=== PATIENT | male | born 1945 | race African-American/Black ===

== ENCOUNTER 2016-08-09 13:13 | Emergency (ER) | payer MEDICARE, MEDICAID ==
[~2016-08-09] VITALS: Ht 182.9 cm; Wt 75.0 kg
[~2016-08-09 13:13] MED LIST: AMLO5TAB4 PO; APIX2.5T PO; ASPI-1035 PO; CLON0.2T PO; DOCU-150 PO; FAMO20TA8 PO; INSLAN SQ; LOSA25TA12 PO; SIMV20TA6 PO; TRAM50TA3 PO
[2016-08-09] MEDS ORDERED: SODIUM CHLORIDE 0.9% 1,000 ML IV ONE (14:45)
[2016-08-09 15:21] LABS: BASOPHILS % 0.7 % (0.0-2.0); HEMATOCRIT. 29.1 % (42.0-52.0); HEMOGLOBIN. 9.4 g/dL (14.0-18.0); LYMPHOCYTES % 8.5 % (20.0-50.0); MEAN CORPUSCULAR HEMOGLOBIN 30.3 pg (28.0-32.0); MEAN CORPUSCULAR HGB CONC 32.2 g/dL (31.0-37.0); MEAN CORPUSCULAR VOLUME 94.3 fL (80.0-94.0); MEAN PLATELET VOLUME 8.2 fl (7.4-10.4); MONOCYTES % 10.6 % (2.0-8.0); NEUTROPHILS % 75.2 % (40.0-76.0); PLATELET 271 x1000/uL (130-400); RED BLOOD CELL COUNT 3.08 mill/uL (4.7-6.1); RED CELL DISTRIBUTION WIDTH 16.5 % (11.6-14.6); WHITE BLOOD COUNT 10.6 x1000/uL (4.5-11.0)
[2016-08-09 15:24] LABS: CHLORIDE 100 mEq/L (98-107); INDEX HEMOLYSI 1 (1-3); INDEX ICTERIC 1 (1-4); INDEX LIPEMIC 1 (1-3)
[2016-08-09 15:26] LABS: ALBUMIN 3.7 g/dL (3.4-5.0); CALCIUM 9.6 mg/dL (8.5-10.1)
[2016-08-09 15:28] LABS: ANION GAP 18; CARBON DIOXIDE 28 mEq/L (21-32); UREA NITROGEN BLOOD 51 mg/dL (7-21)
[2016-08-09 15:33] LABS: ALANINE AMINOTRANSFERASE 13 IU/L (13-61); eGFR 7 mL/min (>60)
[2016-08-09 17:31] VITALS: BP 144/58
== END 2016-08-09 20:28 | disposition home or self-care (01) ==
LOC: ER 13:49
DX: R19.7 Diarrhea, unspecified (principal); Z79.4 Long term (current) use of insulin; Z79.82 Long term (current) use of aspirin; Z79.899 Other long term (current) drug therapy; R10.9 Unspecified abdominal pain; E11.22 Type 2 diabetes mellitus with diabetic chronic kidney disease; N18.9 Chronic kidney disease, unspecified; D64.9 Anemia, unspecified; D72.810 Lymphocytopenia; E86.0 Dehydration; Z99.2 Dependence on renal dialysis; D72.821 Monocytosis (symptomatic); E11.65 Type 2 diabetes mellitus with hyperglycemia
CPT/HCPCS: 36415; 80053; 85025; 96360; 96361; 99285; J7030

== ENCOUNTER 2016-10-08 08:44 | Emergency (ER) | payer MEDICARE, MEDICAID ==
[~2016-10-08] VITALS: Ht 193 cm; Wt 109.0 kg
[2016-10-08] MEDS ORDERED: ASPIRIN 81MG TABLET PO ONE (10:15)
[2016-10-08] MEDS ORDERED: FUROSEMIDE 40MG/4ML VIAL IVP ONE (10:15)
[2016-10-08 10:35] LABS: EOSINOPHILS % 7.7 % (0.0-5.0); HEMATOCRIT. 24.4 % (42.0-52.0); HEMOGLOBIN. 7.9 g/dL (14.0-18.0); LYMPHOCYTES % 10.9 % (20.0-50.0); MEAN CORPUSCULAR HEMOGLOBIN 29.9 pg (28.0-32.0); MEAN CORPUSCULAR VOLUME 91.9 fL (80.0-94.0); MEAN PLATELET VOLUME 9.3 fl (7.4-10.4); MONOCYTES % 10.4 % (2.0-8.0); PLATELET 150 x1000/uL (130-400); RED BLOOD CELL COUNT 2.66 mill/uL (4.7-6.1); RED CELL DISTRIBUTION WIDTH 18.5 % (11.6-14.6)
[2016-10-08 10:47] LABS: CHLORIDE 106 mEq/L (98-107)
[2016-10-08 10:54] LABS: CARBON DIOXIDE 14 mEq/L (21-32)
[2016-10-08 10:56] LABS: TROPONIN I 0.09 ng/mL (0.00-0.04)
[2016-10-08 11:11] LABS: INR 1.1; PROTHROMBIN TIME 11.3 sec
[2016-10-08] MEDS ORDERED: FUROSEMIDE 100MG/10ML VIAL IV STA (11:26)
[2016-10-08] MEDS ORDERED: DEXTROSE 50% WATER 50ML SYRINGE IV ONE (11:30)
[2016-10-08] MEDS ORDERED: INSULIN REGULAR (HUMULIN R) 300UNITS/3ML IV ONE (11:30)
[2016-10-08] MEDS ORDERED: SODIUM BICARBONATE 8.4% 1 MEQ/ML 50ML SYR IV ONE (11:30)
[2016-10-08] MEDS ORDERED: SODIUM POLYSTYRENE SULFONATE 15 G/60 ML BOT PO ONE (11:30)
[2016-10-08] MEDS ORDERED: ALBUTEROL (0.083%) 2.5MG/3ML NEB HHN ONE (11:30)
[2016-10-08] MEDS ORDERED: CALCIUM CHLORIDE 1GM/10ML SYR IV ONE (11:30)
[2016-10-08 13:51] VITALS: BP 117/47
== END 2016-10-08 13:53 | disposition left against medical advice (07) ==
LOC: ER 09:00 → EDBEDREQ 11:32 → ER 13:53 → CANBEDREQ 16:25
DX: R06.00 Dyspnea, unspecified (principal); E87.70 Fluid overload, unspecified; Z79.899 Other long term (current) drug therapy; I12.9 Hypertensive chronic kidney disease with stage 1 through stage 4 chronic kidney disease, or unspecified chronic kidney disease; E11.22 Type 2 diabetes mellitus with diabetic chronic kidney disease; N18.9 Chronic kidney disease, unspecified; E87.5 Hyperkalemia
CPT/HCPCS: 36415; 71010; 80053; 82962; 83880; 84484; 85025; 85610; 93005; 96374; 96375; 96376; 99285; J1815; J1940; J3490

== ENCOUNTER 2016-10-12 00:58 | Inpatient (IN) | payer MEDICARE, MEDICAID ==
[~2016-10-12] VITALS: Ht 200.7 cm; Wt 104.3 kg
[~2016-10-12 00:58] MED LIST changes: -ASPI-1035 PO; +ASPI-1159 PO
[2016-10-12 02:19] LABS: BASOPHILS % 0.8 % (0.0-2.0); EOSINOPHILS % 2.5 % (0.0-5.0); HEMATOCRIT. 23.6 % (42.0-52.0); HEMOGLOBIN. 7.5 g/dL (14.0-18.0); LYMPHOCYTES % 9.9 % (20.0-50.0); MEAN CORPUSCULAR VOLUME 91.2 fL (80.0-94.0); MEAN PLATELET VOLUME 7.4 fl (7.4-10.4); MONOCYTES % 7.8 % (2.0-8.0); PLATELET 174 x1000/uL (130-400); RED BLOOD CELL COUNT 2.59 mill/uL (4.7-6.1); RED CELL DISTRIBUTION WIDTH 18.9 % (11.6-14.6)
[2016-10-12 02:35] LABS: CARBON DIOXIDE 13 mEq/L (21-32); CHLORIDE 101 mEq/L (98-107)
[2016-10-12] MEDS ORDERED: SODIUM POLYSTYRENE SULFONATE 15 G/60 ML BOT PO NR (04:15)
[2016-10-12] MEDS ORDERED: INSULIN REGULAR (HUMULIN R) 300UNITS/3ML IV NR (04:15)
[2016-10-12] MEDS ORDERED: DEXTROSE 50% WATER 50ML SYRINGE IV NR (04:15)
[2016-10-12] MEDS ORDERED: SODIUM BICARBONATE 8.4% 1 MEQ/ML 50ML SYR IV NR (04:15)
[2016-10-12 09:45] VITALS: BP 130/49
[2016-10-12 10:31] VITALS: BP 130/49
[2016-10-12 12:00] VITALS: BP 136/55
[2016-10-12] MEDS ORDERED: ONDANSETRON HCL 4MG/2ML VIAL IV PRN (13:15)
[2016-10-12] MEDS ORDERED: TRAMADOL 50MG TABLET PO PRN (13:15)
[2016-10-12] MEDS ORDERED: ACETAMINOPHEN 325MG TABLET PO PRN (13:15)
[2016-10-12] MEDS ORDERED: IPRATROPIUM/ALBUTEROL 0.5-3(2.5)MG/3ML NEB INH PRN (13:15)
[2016-10-12] MEDS: CLONIDINE 0.2MG TABLET PO SCH ×2 (13:30→21:40)
[2016-10-12] MEDS ORDERED: AMLODIPINE 5MG TABLET PO SCH (13:30)
[2016-10-12 15:35] LABS: AMMONIA 26 uMol/L (<32)
[2016-10-12 15:39] LABS: TOTAL IRON BINDING CAPACITY 124 ug/dL (250-450)
[2016-10-12 16:03] VITALS: BP 155/82
[2016-10-12] MEDS: DOCUSATE SODIUM 100MG CAPSULE PO SCH (16:54)
[2016-10-12] MEDS: FAMOTIDINE 20MG TABLET PO SCH (16:54)
[2016-10-12] MEDS ORDERED: FAMOTIDINE(NEO) 1MG/ML SUSP PO SCH (17:00)
[2016-10-12 20:00] VITALS: BP 162/72
[2016-10-12] MEDS ORDERED: DEXTROSE 50% WATER 50ML SYRINGE IV PRN (20:30)
[2016-10-12] MEDS ORDERED: LOSARTAN POTASSIUM 25 MG TABLET PO SCH (21:00)
[2016-10-12] MEDS: ZOLPIDEM TARTRATE 5MG TABLET PO PRN (21:37)
[2016-10-12] MEDS: BLOOD SUGAR DIAGNOSTIC STRIP TEST SCH (21:41)
[2016-10-12] MEDS: INSULIN LISPRO 100 UNITS/ML SUBCUT SCH (21:44)
[2016-10-12] MEDS: INSULIN DETEMIR UD 100 UNITS/ML SYR SUBCUT SCH (21:46)
[2016-10-12] MEDS: LORAZEPAM 2MG/ML CPJ IV PRN (22:12)
[2016-10-12 23:42] VITALS: BP 140/66
[2016-10-13] MEDS: LORAZEPAM 2MG/ML CPJ IV PRN ×2 (03:46→16:42)
[2016-10-13 04:00] VITALS: BP 149/99
[2016-10-13 05:40] LABS: BASOPHILS % 0.8 % (0.0-2.0); EOSINOPHILS % 5.5 % (0.0-5.0); HEMOGLOBIN. 8.6 g/dL (14.0-18.0); LYMPHOCYTES % 7.2 % (20.0-50.0); MEAN CORPUSCULAR HEMOGLOBIN 29.1 pg (28.0-32.0); MEAN CORPUSCULAR VOLUME 87.9 fL (80.0-94.0); MEAN PLATELET VOLUME 8.8 fl (7.4-10.4); MONOCYTES % 14.2 % (2.0-8.0); NEUTROPHILS % 72.3 % (40.0-76.0); PLATELET 166 x1000/uL (130-400); RED BLOOD CELL COUNT 2.96 mill/uL (4.7-6.1); RED CELL DISTRIBUTION WIDTH 18.1 % (11.6-14.6)
[2016-10-13] MEDS: INSULIN LISPRO 100 UNITS/ML SUBCUT SCH ×4 (05:51→20:00)
[2016-10-13] MEDS: BLOOD SUGAR DIAGNOSTIC STRIP TEST SCH ×5 (05:51→20:32)
[2016-10-13 06:48] LABS: PHOSPHORUS 10.3 mg/dL (2.5-4.9)
[2016-10-13 08:00] VITALS: BP 150/73
[2016-10-13] MEDS ORDERED: EPOETIN ALFA 4000UNITS/ML VIAL SUBCUT NR ×2 (09:00→21:00)
[2016-10-13] MEDS ORDERED: CLONIDINE 0.2MG TABLET PO SCH (09:00)
[2016-10-13] MEDS: FAMOTIDINE 20MG TABLET PO SCH (09:20)
[2016-10-13] MEDS: AMLODIPINE 10MG TABLET PO SCH (09:20)
[2016-10-13 12:00] VITALS: BP 143/71
[2016-10-13] MEDS: SEVELAMER CARBONATE 800 MG TABLET PO SCH ×2 (13:10→18:10)
[2016-10-13 16:00] VITALS: BP 151/79
[2016-10-13] MEDS: DOCUSATE SODIUM 100MG CAPSULE PO SCH (16:42)
[2016-10-13 20:00] VITALS: BP 104/63
[2016-10-13] MEDS ORDERED: QUETIAPINE FUMARATE 50MG TABLET PO SCH (20:00)
[2016-10-13] MEDS ORDERED: TRAMADOL 50MG TABLET PO PRN (20:00)
[2016-10-13] MEDS ORDERED: LORAZEPAM 2MG/ML CPJ IV NR (20:00)
[2016-10-13] MEDS: INSULIN DETEMIR UD 100 UNITS/ML SYR SUBCUT SCH (22:00)
[2016-10-14] VITALS: BP 155/83
[2016-10-14] MEDS: LORAZEPAM 2MG/ML CPJ IV PRN ×6 (00:29→21:39)
[2016-10-14 04:00] VITALS: BP 152/66
[2016-10-14 06:49] LABS: HEMATOCRIT. 26.6 % (42.0-52.0); HEMOGLOBIN. 8.9 g/dL (14.0-18.0); MEAN CORPUSCULAR HEMOGLOBIN 29.2 pg (28.0-32.0); MEAN CORPUSCULAR VOLUME 87.1 fL (80.0-94.0); MEAN PLATELET VOLUME 8.4 fl (7.4-10.4); PLATELET 154 x1000/uL (130-400); RED BLOOD CELL COUNT 3.05 mill/uL (4.7-6.1); RED CELL DISTRIBUTION WIDTH 17.8 % (11.6-14.6)
[2016-10-14] MEDS: INSULIN LISPRO 100 UNITS/ML SUBCUT SCH ×4 (07:41→20:28)
[2016-10-14 08:00] VITALS: BP 160/75
[2016-10-14 08:16] LABS: PHOSPHORUS 7.9 mg/dL (2.5-4.9)
[2016-10-14] MEDS: SEVELAMER CARBONATE 800 MG TABLET PO SCH ×3 (08:49→17:44)
[2016-10-14] MEDS: FAMOTIDINE 20MG TABLET PO SCH (08:49)
[2016-10-14] MEDS: CLONIDINE 0.2MG TABLET PO SCH ×2 (09:00→11:16)
[2016-10-14] MEDS: AMLODIPINE 10MG TABLET PO SCH ×2 (09:00→11:16)
[2016-10-14 12:00] VITALS: BP 141/69
[2016-10-14] MEDS: BLOOD SUGAR DIAGNOSTIC STRIP TEST SCH ×3 (12:40→20:13)
[2016-10-14 16:00] VITALS: BP 170/74
[2016-10-14 17:12] LABS: PLATELET ESTIMATE NORMAL
[2016-10-14] MEDS: DOCUSATE SODIUM 250MG CAPSULE PO SCH (17:44)
[2016-10-14 20:00] VITALS: BP 162/71
[2016-10-14] MEDS: ASCORBIC ACID 250 MG TABLET PO SCH (21:00)
[2016-10-14] MEDS: ZOLPIDEM TARTRATE 5MG TABLET PO PRN (21:23)
[2016-10-14] MEDS: INSULIN DETEMIR UD 100 UNITS/ML SYR SUBCUT SCH (21:26)
[2016-10-15] VITALS: BP 162/71
[2016-10-15] MEDS: LORAZEPAM 2MG/ML CPJ IV PRN ×4 (02:28→14:58)
[2016-10-15 04:00] VITALS: BP 181/78
[2016-10-15] MEDS: BLOOD SUGAR DIAGNOSTIC STRIP TEST SCH ×4 (06:55→21:20)
[2016-10-15 07:09] LABS: BASOPHILS % 0.7 % (0.0-2.0); EOSINOPHILS % 3.8 % (0.0-5.0); HEMATOCRIT. 29.5 % (42.0-52.0); HEMOGLOBIN. 9.7 g/dL (14.0-18.0); LYMPHOCYTES % 12.3 % (20.0-50.0); MEAN CORPUSCULAR HEMOGLOBIN 28.9 pg (28.0-32.0); MEAN CORPUSCULAR VOLUME 87.8 fL (80.0-94.0); MEAN PLATELET VOLUME 8.8 fl (7.4-10.4); MONOCYTES % 14.3 % (2.0-8.0); NEUTROPHILS % 68.9 % (40.0-76.0); PLATELET 194 x1000/uL (130-400); RED BLOOD CELL COUNT 3.36 mill/uL (4.7-6.1); RED CELL DISTRIBUTION WIDTH 17.9 % (11.6-14.6)
[2016-10-15] MEDS: INSULIN LISPRO 100 UNITS/ML SUBCUT SCH ×4 (07:38→21:00)
[2016-10-15 07:40] LABS: PHOSPHORUS 8.9 mg/dL (2.5-4.9)
[2016-10-15 08:00] VITALS: BP 165/94
[2016-10-15] MEDS: SEVELAMER CARBONATE 800 MG TABLET PO SCH ×3 (08:10→17:47)
[2016-10-15] MEDS: AMLODIPINE 10MG TABLET PO SCH (09:00)
[2016-10-15] MEDS: FOLIC ACID/VITAMIN B COMP W-C TABLET PO SCH (09:00)
[2016-10-15] MEDS: ZINC SULFATE 220 MG ( 50 ) CAPSULE PO SCH (09:00)
[2016-10-15] MEDS: FAMOTIDINE 20MG TABLET PO SCH (09:00)
[2016-10-15] MEDS: CLONIDINE 0.2MG TABLET PO SCH (09:00)
[2016-10-15] MEDS: ASCORBIC ACID 250 MG TABLET PO SCH ×2 (09:00→21:29)
[2016-10-15] MEDS: DOCUSATE SODIUM 250MG CAPSULE PO SCH ×2 (09:00→17:00)
[2016-10-15] MEDS ORDERED: DIPHENHYDRAMINE 50MG/ML VIAL IM PRN (10:15)
[2016-10-15] MEDS: MULTIVITAMINS,THER W-MINERALS TABLET PO SCH (10:45)
[2016-10-15] MEDS: FOLIC ACID 1MG TABLET PO SCH (10:45)
[2016-10-15 12:00] VITALS: BP 146/69
[2016-10-15] MEDS ORDERED: HYDRALAZINE 20MG/ML VIAL IV PRN (13:00)
[2016-10-15 13:06] LABS: AMMONIA 18 uMol/L (<32); ETHANOL BLOOD < 10 mg/dL; T4 FREE 1.01 ng/dL (0.76-1.46)
[2016-10-15 13:25] LABS: FOLIC ACID (FOLATE) SERUM 5.4 ng/mL (>5.38)
[2016-10-15 15:57] VITALS: BP 154/78
[2016-10-15] MEDS ORDERED: LORAZEPAM 2MG/ML CPJ IV PRN ×2 (16:00→16:30)
[2016-10-15 20:00] VITALS: BP 156/71
[2016-10-15] MEDS: INSULIN DETEMIR UD 100 UNITS/ML SYR SUBCUT SCH (21:29)
[2016-10-15] MEDS: CHLORDIAZEPOXIDE 25MG CAPSULE PO SCH (21:29)
[2016-10-15] MEDS: QUETIAPINE FUMARATE 25MG TABLET PO SCH (21:29)
[2016-10-16] VITALS: BP 159/68
[2016-10-16 04:00] VITALS: BP 173/77
[2016-10-16] MEDS: CHLORDIAZEPOXIDE 25MG CAPSULE PO SCH ×3 (05:31→20:51)
[2016-10-16] MEDS: BLOOD SUGAR DIAGNOSTIC STRIP TEST SCH ×4 (06:53→20:57)
[2016-10-16 07:38] LABS: BASOPHILS % 0.6 % (0.0-2.0); EOSINOPHILS % 1.9 % (0.0-5.0); HEMOGLOBIN. 8.9 g/dL (14.0-18.0); LYMPHOCYTES % 7.4 % (20.0-50.0); MEAN CORPUSCULAR VOLUME 88.2 fL (80.0-94.0); MEAN PLATELET VOLUME 9.1 fl (7.4-10.4); MONOCYTES % 10.9 % (2.0-8.0); NEUTROPHILS % 79.2 % (40.0-76.0); PLATELET 202 x1000/uL (130-400); RED BLOOD CELL COUNT 3.06 mill/uL (4.7-6.1); RED CELL DISTRIBUTION WIDTH 18.1 % (11.6-14.6)
[2016-10-16 08:00] VITALS: BP 183/76
[2016-10-16] MEDS: INSULIN LISPRO 100 UNITS/ML SUBCUT SCH ×4 (09:55→21:01)
[2016-10-16] MEDS: AMLODIPINE 10MG TABLET PO SCH (09:58)
[2016-10-16] MEDS: CLONIDINE 0.2MG TABLET PO SCH (09:59)
[2016-10-16] MEDS: QUETIAPINE FUMARATE 25MG TABLET PO SCH ×2 (10:00→20:52)
[2016-10-16] MEDS: FAMOTIDINE 20MG TABLET PO SCH (10:01)
[2016-10-16] MEDS: SEVELAMER CARBONATE 800 MG TABLET PO SCH ×3 (10:02→18:10)
[2016-10-16] MEDS: CYANOCOBALAMIN 1000MCG TABLET PO SCH (10:02)
[2016-10-16] MEDS: FOLIC ACID 1MG TABLET PO SCH (10:03)
[2016-10-16] MEDS: ZINC SULFATE 220 MG ( 50 ) CAPSULE PO SCH (10:04)
[2016-10-16] MEDS: FOLIC ACID/VITAMIN B COMP W-C TABLET PO SCH (10:04)
[2016-10-16] MEDS: ASCORBIC ACID 250 MG TABLET PO SCH ×2 (10:04→20:51)
[2016-10-16] MEDS: DOCUSATE SODIUM 250MG CAPSULE PO SCH ×2 (10:05→17:00)
[2016-10-16] MEDS: MULTIVITAMINS,THER W-MINERALS TABLET PO SCH (10:05)
[2016-10-16 12:00] VITALS: BP 155/73
[2016-10-16] MEDS: LOSARTAN POTASSIUM 50 MG TABLET PO SCH ×2 (13:28→20:51)
[2016-10-16 20:00] VITALS: BP 151/76
[2016-10-16] MEDS: METOPROLOL TARTRATE 25MG TABLET PO SCH (20:51)
[2016-10-16] MEDS: ZOLPIDEM TARTRATE 5MG TABLET PO PRN (21:06)
[2016-10-17] VITALS: BP 126/73
[2016-10-17 04:00] VITALS: BP 141/67
[2016-10-17 05:56] LABS: EOSINOPHILS % 7.4 % (0.0-5.0); HEMATOCRIT. 26.5 % (42.0-52.0); HEMOGLOBIN. 8.8 g/dL (14.0-18.0); MEAN CORPUSCULAR HEMOGLOBIN 29.2 pg (28.0-32.0); MEAN CORPUSCULAR VOLUME 88.4 fL (80.0-94.0); MEAN PLATELET VOLUME 8.5 fl (7.4-10.4); MONOCYTES % 14.3 % (2.0-8.0); NEUTROPHILS % 61.3 % (40.0-76.0); PLATELET 230 x1000/uL (130-400)
[2016-10-17] MEDS: CHLORDIAZEPOXIDE 25MG CAPSULE PO SCH ×3 (06:01→20:29)
[2016-10-17] MEDS: BLOOD SUGAR DIAGNOSTIC STRIP TEST SCH ×4 (06:18→20:53)
[2016-10-17 06:46] LABS: PHOSPHORUS 8.3 mg/dL (2.5-4.9)
[2016-10-17 08:00] VITALS: BP 144/88
[2016-10-17] MEDS: INSULIN LISPRO 100 UNITS/ML SUBCUT SCH ×4 (08:09→20:52)
[2016-10-17] MEDS: METOPROLOL TARTRATE 25MG TABLET PO SCH ×2 (09:00→20:30)
[2016-10-17] MEDS: CLONIDINE 0.2MG TABLET PO SCH (09:00)
[2016-10-17] MEDS: AMLODIPINE 10MG TABLET PO SCH (09:00)
[2016-10-17] MEDS: LOSARTAN POTASSIUM 50 MG TABLET PO SCH ×2 (09:00→20:29)
[2016-10-17] MEDS: DOCUSATE SODIUM 250MG CAPSULE PO SCH ×2 (09:23→17:00)
[2016-10-17] MEDS: QUETIAPINE FUMARATE 25MG TABLET PO SCH ×2 (09:23→20:29)
[2016-10-17] MEDS: FAMOTIDINE 20MG TABLET PO SCH (09:27)
[2016-10-17] MEDS: MULTIVITAMINS,THER W-MINERALS TABLET PO SCH (09:27)
[2016-10-17] MEDS: CYANOCOBALAMIN 1000MCG TABLET PO SCH (09:27)
[2016-10-17] MEDS: SEVELAMER CARBONATE 800 MG TABLET PO SCH ×3 (09:27→18:10)
[2016-10-17] MEDS: FOLIC ACID 1MG TABLET PO SCH (09:27)
[2016-10-17] MEDS: ZINC SULFATE 220 MG ( 50 ) CAPSULE PO SCH (09:27)
[2016-10-17] MEDS: FOLIC ACID/VITAMIN B COMP W-C TABLET PO SCH (09:27)
[2016-10-17] MEDS: ASCORBIC ACID 250 MG TABLET PO SCH ×2 (09:27→20:29)
[2016-10-17] MEDS ORDERED: LACTULOSE 20G/30ML UDC PO SCH (09:30)
[2016-10-17] MEDS ORDERED: HYDROCORTISONE 1% RECTAL CREAM 30GM PR PRN (09:30)
[2016-10-17 12:00] VITALS: BP 153/73
[2016-10-17] MEDS ORDERED: LORAZEPAM 2MG/ML CPJ IV NR (12:46)
[2016-10-17 16:00] VITALS: BP 113/73
[2016-10-17 20:00] VITALS: BP 130/60
[2016-10-17] MEDS: EPOETIN ALFA 10000UNITS/ML VIAL SUBCUT SCH (20:53)
[2016-10-18] VITALS: BP 129/63
[2016-10-18 04:00] VITALS: BP 143/70
[2016-10-18] MEDS ORDERED: LORAZEPAM 2MG/ML CPJ IV PRN (04:30)
[2016-10-18] MEDS: CHLORDIAZEPOXIDE 25MG CAPSULE PO SCH ×3 (05:17→21:01)
[2016-10-18] MEDS: BLOOD SUGAR DIAGNOSTIC STRIP TEST SCH ×4 (05:48→21:06)
[2016-10-18 07:29] LABS: BASOPHILS % 0.7 % (0.0-2.0); EOSINOPHILS % 4.8 % (0.0-5.0); HEMATOCRIT. 27.5 % (42.0-52.0); LYMPHOCYTES % 10.2 % (20.0-50.0); MEAN CORPUSCULAR HEMOGLOBIN 29.1 pg (28.0-32.0); MEAN CORPUSCULAR VOLUME 88.5 fL (80.0-94.0); MEAN PLATELET VOLUME 9.1 fl (7.4-10.4); MONOCYTES % 14.2 % (2.0-8.0); NEUTROPHILS % 70.1 % (40.0-76.0); PLATELET 263 x1000/uL (130-400); RED BLOOD CELL COUNT 3.11 mill/uL (4.7-6.1)
[2016-10-18] MEDS: INSULIN LISPRO 100 UNITS/ML SUBCUT SCH ×4 (07:37→21:10)
[2016-10-18 07:43] LABS: PHOSPHORUS 6.7 mg/dL (2.5-4.9)
[2016-10-18 08:00] VITALS: BP_SYST 148; BP_SYST 149; BP_DIAS 68; BP_DIAS 88
[2016-10-18] MEDS: ZINC SULFATE 220 MG ( 50 ) CAPSULE PO SCH (08:47)
[2016-10-18] MEDS: MULTIVITAMINS,THER W-MINERALS TABLET PO SCH (08:47)
[2016-10-18] MEDS: DOCUSATE SODIUM 250MG CAPSULE PO SCH ×2 (08:47→17:24)
[2016-10-18] MEDS: FOLIC ACID 1MG TABLET PO SCH (08:47)
[2016-10-18] MEDS: LOSARTAN POTASSIUM 50 MG TABLET PO SCH ×2 (08:47→21:01)
[2016-10-18] MEDS: QUETIAPINE FUMARATE 25MG TABLET PO SCH ×2 (08:47→21:01)
[2016-10-18] MEDS: FOLIC ACID/VITAMIN B COMP W-C TABLET PO SCH (08:47)
[2016-10-18] MEDS: FAMOTIDINE 20MG TABLET PO SCH (08:47)
[2016-10-18] MEDS: SEVELAMER CARBONATE 800 MG TABLET PO SCH ×3 (08:47→17:24)
[2016-10-18] MEDS: AMLODIPINE 10MG TABLET PO SCH (08:47)
[2016-10-18] MEDS: CLONIDINE 0.2MG TABLET PO SCH (08:48)
[2016-10-18] MEDS: ASCORBIC ACID 250 MG TABLET PO SCH ×2 (08:48→21:01)
[2016-10-18] MEDS: CYANOCOBALAMIN 1000MCG TABLET PO SCH (08:48)
[2016-10-18] MEDS: METOPROLOL TARTRATE 25MG TABLET PO SCH ×2 (08:48→21:02)
[2016-10-18 12:00] VITALS: BP 118/61
[2016-10-18 16:00] VITALS: BP 116/50
[2016-10-18 20:00] VITALS: BP 156/73
[2016-10-19] VITALS: BP 148/88
[2016-10-19 04:00] VITALS: BP 136/89
[2016-10-19] MEDS: CHLORDIAZEPOXIDE 25MG CAPSULE PO SCH (05:25)
[2016-10-19] MEDS: BLOOD SUGAR DIAGNOSTIC STRIP TEST SCH ×4 (05:33→21:12)
[2016-10-19] MEDS: INSULIN LISPRO 100 UNITS/ML SUBCUT SCH ×4 (07:23→21:33)
[2016-10-19 08:00] VITALS: BP 128/64
[2016-10-19] MEDS: MULTIVITAMINS,THER W-MINERALS TABLET PO SCH (08:46)
[2016-10-19] MEDS: METOPROLOL TARTRATE 25MG TABLET PO SCH ×2 (08:47→21:07)
[2016-10-19] MEDS: CYANOCOBALAMIN 1000MCG TABLET PO SCH (08:47)
[2016-10-19] MEDS: SEVELAMER CARBONATE 800 MG TABLET PO SCH ×3 (08:47→17:20)
[2016-10-19] MEDS: ASCORBIC ACID 250 MG TABLET PO SCH ×2 (08:47→21:07)
[2016-10-19] MEDS: AMLODIPINE 10MG TABLET PO SCH (08:47)
[2016-10-19] MEDS: FOLIC ACID 1MG TABLET PO SCH (08:48)
[2016-10-19] MEDS: LOSARTAN POTASSIUM 50 MG TABLET PO SCH ×2 (08:48→21:07)
[2016-10-19] MEDS: ZINC SULFATE 220 MG ( 50 ) CAPSULE PO SCH (08:48)
[2016-10-19] MEDS: CLONIDINE 0.2MG TABLET PO SCH (08:48)
[2016-10-19] MEDS: DOCUSATE SODIUM 250MG CAPSULE PO SCH ×2 (08:48→17:20)
[2016-10-19] MEDS: FOLIC ACID/VITAMIN B COMP W-C TABLET PO SCH (08:48)
[2016-10-19] MEDS: FAMOTIDINE 20MG TABLET PO SCH (08:48)
[2016-10-19] MEDS: QUETIAPINE FUMARATE 25MG TABLET PO SCH ×2 (08:48→21:07)
[2016-10-19 12:00] VITALS: BP 117/61
[2016-10-19] MEDS ORDERED: LACTULOSE 20G/30ML UDC PO NR (12:30)
[2016-10-19 16:00] VITALS: BP 148/67
[2016-10-19 20:00] VITALS: BP 136/72
[2016-10-20] VITALS: BP 132/62
[2016-10-20 04:00] VITALS: BP 124/64
[2016-10-20] MEDS: BLOOD SUGAR DIAGNOSTIC STRIP TEST SCH ×4 (05:46→21:35)
[2016-10-20 06:42] LABS: HEMATOCRIT. 25.6 % (42.0-52.0); HEMOGLOBIN. 8.2 g/dL (14.0-18.0); MEAN CORPUSCULAR HEMOGLOBIN 28.9 pg (28.0-32.0); MEAN CORPUSCULAR VOLUME 89.9 fL (80.0-94.0); MEAN PLATELET VOLUME 8.7 fl (7.4-10.4); PLATELET 239 x1000/uL (130-400); RED BLOOD CELL COUNT 2.84 mill/uL (4.7-6.1); RED CELL DISTRIBUTION WIDTH 17.7 % (11.6-14.6)
[2016-10-20 07:23] LABS: PHOSPHORUS 8.9 mg/dL (2.5-4.9)
[2016-10-20 08:00] VITALS: BP 132/64
[2016-10-20] MEDS: DOCUSATE SODIUM 250MG CAPSULE PO SCH ×2 (08:31→17:46)
[2016-10-20] MEDS: FAMOTIDINE 20MG TABLET PO SCH (08:32)
[2016-10-20] MEDS: FOLIC ACID/VITAMIN B COMP W-C TABLET PO SCH (08:32)
[2016-10-20] MEDS: SEVELAMER CARBONATE 800 MG TABLET PO SCH ×3 (08:32→17:46)
[2016-10-20] MEDS: ASCORBIC ACID 250 MG TABLET PO SCH ×2 (08:32→20:56)
[2016-10-20] MEDS: FOLIC ACID 1MG TABLET PO SCH (08:32)
[2016-10-20] MEDS: ZINC SULFATE 220 MG ( 50 ) CAPSULE PO SCH (08:32)
[2016-10-20] MEDS: QUETIAPINE FUMARATE 25MG TABLET PO SCH ×2 (08:32→20:55)
[2016-10-20] MEDS: INSULIN LISPRO 100 UNITS/ML SUBCUT SCH ×4 (08:34→21:00)
[2016-10-20] MEDS: LOSARTAN POTASSIUM 50 MG TABLET PO SCH ×2 (09:00→20:55)
[2016-10-20] MEDS: AMLODIPINE 10MG TABLET PO SCH (09:00)
[2016-10-20] MEDS: CLONIDINE 0.2MG TABLET PO SCH (09:00)
[2016-10-20] MEDS: METOPROLOL TARTRATE 25MG TABLET PO SCH ×2 (09:00→20:56)
[2016-10-20 11:50] LABS: PLATELET ESTIMATE NORMAL
[2016-10-20 12:00] VITALS: BP 89/46
[2016-10-20] MEDS: CYANOCOBALAMIN 1000MCG TABLET PO SCH (13:52)
[2016-10-20 16:00] VITALS: BP 125/60
[2016-10-20 20:00] VITALS: BP 145/66
[2016-10-20] MEDS: EPOETIN ALFA 10000UNITS/ML VIAL SUBCUT SCH (21:33)
[2016-10-21] VITALS (8 sets, daily range): BP systolic 98–145; BP diastolic 43–89
[2016-10-21] MEDS: BLOOD SUGAR DIAGNOSTIC STRIP TEST SCH ×4 (05:36→21:49)
[2016-10-21 06:28] LABS: HEMOGLOBIN. 7.7 g/dL (14.0-18.0)
[2016-10-21 06:36] LABS: HEMATOCRIT. 24.1 % (42.0-52.0); MEAN CORPUSCULAR HEMOGLOBIN 28.4 pg (28.0-32.0); MEAN CORPUSCULAR VOLUME 89.2 fL (80.0-94.0); MEAN PLATELET VOLUME 8.7 fl (7.4-10.4); PLATELET 220 x1000/uL (130-400); RED CELL DISTRIBUTION WIDTH 18.4 % (11.6-14.6)
[2016-10-21] MEDS: LOSARTAN POTASSIUM 50 MG TABLET PO SCH ×2 (10:45→21:48)
[2016-10-21] MEDS: CLONIDINE 0.2MG TABLET PO SCH (10:45)
[2016-10-21] MEDS: METOPROLOL TARTRATE 25MG TABLET PO SCH ×2 (10:45→21:49)
[2016-10-21] MEDS: QUETIAPINE FUMARATE 25MG TABLET PO SCH ×2 (10:45→21:48)
[2016-10-21] MEDS: AMLODIPINE 10MG TABLET PO SCH (10:45)
[2016-10-21] MEDS: INSULIN LISPRO 100 UNITS/ML SUBCUT SCH ×4 (10:47→21:59)
[2016-10-21] MEDS: CYANOCOBALAMIN 1000MCG TABLET PO SCH (10:48)
[2016-10-21] MEDS: ASCORBIC ACID 250 MG TABLET PO SCH ×2 (10:48→21:48)
[2016-10-21] MEDS: SEVELAMER CARBONATE 800 MG TABLET PO SCH ×3 (10:48→18:10)
[2016-10-21] MEDS: FOLIC ACID 1MG TABLET PO SCH (10:48)
[2016-10-21] MEDS: ZINC SULFATE 220 MG ( 50 ) CAPSULE PO SCH (10:49)
[2016-10-21] MEDS: DOCUSATE SODIUM 250MG CAPSULE PO SCH ×2 (10:49→17:00)
[2016-10-21] MEDS: FAMOTIDINE 20MG TABLET PO SCH (10:49)
[2016-10-21] MEDS: FOLIC ACID/VITAMIN B COMP W-C TABLET PO SCH (10:49)
[2016-10-21 11:14] LABS: PLATELET ESTIMATE NORMAL
[2016-10-21] MEDS ORDERED: ZOSYN XX SCH (13:15)
[2016-10-21] MEDS ORDERED: LORAZEPAM 2MG/ML CPJ IV NR (13:30)
[2016-10-21] MEDS ORDERED: VANCOMYCIN 2,000 MG in DEXT 5% WATER 500 ML IV SCH (16:00)
[2016-10-21] MEDS: PIPERACILLIN/TAZ 3.375G PREMIX 50 ML IV SCH ×2 (17:13→22:01)
[2016-10-22] VITALS (7 sets, daily range): BP systolic 91–133; BP diastolic 40–67
[2016-10-22] MEDS: PIPERACILLIN/TAZ 3.375G PREMIX 50 ML IV SCH ×3 (05:53→23:27)
[2016-10-22] MEDS: BLOOD SUGAR DIAGNOSTIC STRIP TEST SCH ×4 (05:53→21:16)
[2016-10-22 06:49] LABS: HEMATOCRIT. 24.6 % (42.0-52.0); HEMOGLOBIN. 7.9 g/dL (14.0-18.0); MEAN CORPUSCULAR HEMOGLOBIN 28.1 pg (28.0-32.0); MEAN CORPUSCULAR VOLUME 87.1 fL (80.0-94.0); MEAN PLATELET VOLUME 7.9 fl (7.4-10.4); PLATELET 188 x1000/uL (130-400); RED BLOOD CELL COUNT 2.82 mill/uL (4.7-6.1); RED CELL DISTRIBUTION WIDTH 18.9 % (11.6-14.6)
[2016-10-22] MEDS: SEVELAMER CARBONATE 800 MG TABLET PO SCH ×3 (08:10→17:47)
[2016-10-22] MEDS: CYANOCOBALAMIN 1000MCG TABLET PO SCH (08:10)
[2016-10-22] MEDS: QUETIAPINE FUMARATE 25MG TABLET PO SCH ×2 (08:41→21:14)
[2016-10-22] MEDS: INSULIN LISPRO 100 UNITS/ML SUBCUT SCH ×4 (08:45→21:16)
[2016-10-22] MEDS: AMLODIPINE 10MG TABLET PO SCH (09:00)
[2016-10-22] MEDS: FAMOTIDINE 20MG TABLET PO SCH (09:00)
[2016-10-22] MEDS: CLONIDINE 0.2MG TABLET PO SCH (09:00)
[2016-10-22] MEDS: METOPROLOL TARTRATE 25MG TABLET PO SCH ×2 (09:00→21:14)
[2016-10-22] MEDS: DOCUSATE SODIUM 250MG CAPSULE PO SCH ×2 (09:00→17:47)
[2016-10-22] MEDS: FOLIC ACID 1MG TABLET PO SCH (09:00)
[2016-10-22] MEDS: ZINC SULFATE 220 MG ( 50 ) CAPSULE PO SCH (09:00)
[2016-10-22] MEDS: ASCORBIC ACID 250 MG TABLET PO SCH ×2 (09:00→21:14)
[2016-10-22] MEDS: FOLIC ACID/VITAMIN B COMP W-C TABLET PO SCH (09:00)
[2016-10-22] MEDS: LOSARTAN POTASSIUM 50 MG TABLET PO SCH ×2 (09:00→21:14)
[2016-10-22 09:16] LABS: NUCLEATED RED BLOOD CELLS 1 /100 WBC
[2016-10-22 09:17] LABS: PLATELET ESTIMATE NORMAL
[2016-10-22] MEDS ORDERED: VANCOMYCIN 1 G PREMIX 200 ML IV SCH (18:00)
[2016-10-22] MEDS: EPOETIN ALFA 10000UNITS/ML VIAL SUBCUT SCH (21:15)
[2016-10-23] VITALS (7 sets, daily range): BP systolic 110–125; BP diastolic 51–62
[2016-10-23] MEDS: PIPERACILLIN/TAZ 3.375G PREMIX 50 ML IV SCH (05:32)
[2016-10-23 06:28] LABS: HEMOGLOBIN. 9.1 g/dL (14.0-18.0); MEAN CORPUSCULAR HEMOGLOBIN 28.8 pg (28.0-32.0); MEAN CORPUSCULAR VOLUME 88.8 fL (80.0-94.0); MEAN PLATELET VOLUME 8.5 fl (7.4-10.4); PLATELET 176 x1000/uL (130-400); RED BLOOD CELL COUNT 3.15 mill/uL (4.7-6.1); RED CELL DISTRIBUTION WIDTH 18.6 % (11.6-14.6)
[2016-10-23] MEDS: BLOOD SUGAR DIAGNOSTIC STRIP TEST SCH ×4 (07:40→20:02)
[2016-10-23] MEDS: QUETIAPINE FUMARATE 25MG TABLET PO SCH ×2 (08:52→20:01)
[2016-10-23] MEDS: AMLODIPINE 10MG TABLET PO SCH (08:52)
[2016-10-23] MEDS: FOLIC ACID 1MG TABLET PO SCH (08:52)
[2016-10-23] MEDS: LOSARTAN POTASSIUM 50 MG TABLET PO SCH ×2 (08:52→20:01)
[2016-10-23] MEDS: ASCORBIC ACID 250 MG TABLET PO SCH ×2 (08:52→20:01)
[2016-10-23] MEDS: CYANOCOBALAMIN 1000MCG TABLET PO SCH (08:52)
[2016-10-23] MEDS: CLONIDINE 0.2MG TABLET PO SCH (08:52)
[2016-10-23] MEDS: ZINC SULFATE 220 MG ( 50 ) CAPSULE PO SCH (08:52)
[2016-10-23] MEDS: FAMOTIDINE 20MG TABLET PO SCH (08:52)
[2016-10-23] MEDS: DOCUSATE SODIUM 250MG CAPSULE PO SCH (08:53)
[2016-10-23] MEDS: FOLIC ACID/VITAMIN B COMP W-C TABLET PO SCH (08:53)
[2016-10-23] MEDS: METOPROLOL TARTRATE 25MG TABLET PO SCH ×2 (08:53→20:01)
[2016-10-23] MEDS: INSULIN LISPRO 100 UNITS/ML SUBCUT SCH ×4 (08:54→20:03)
[2016-10-23] MEDS: SEVELAMER CARBONATE 800 MG TABLET PO SCH ×3 (09:00→18:10)
[2016-10-23 14:01] LABS: PLATELET ESTIMATE NORMAL
[2016-10-23] MEDS: DOCUSATE SODIUM SUGAR FREE 100MG/10ML UDC NG SCH ×2 (15:43→17:00)
[2016-10-23] MEDS ORDERED: PIPERACILLIN/TAZ 2.25G PREMIX 50 ML IV SCH (16:00)
== END 2016-10-23 22:25 | DRG 377 ==
LOC: ER 01:01 → 7WST 04:48 → EDBEDREQ 04:54 → ENRESERV 08:16
PROVIDERS: ADMIT Family Medicine Adult Medicine; ATTEND Family Medicine Adult Medicine
PROC: 30233N1 Transfusion of Nonautologous Red Blood Cells into Peripheral Vein, Percutaneous Approach (ICD-10-PCS; principal; 2016-10-12)
PROC: 5A1D60Z (ICD-10-PCS; 2016-10-12)
DX: K92.2 Gastrointestinal hemorrhage, unspecified (principal); A41.02 Sepsis due to Methicillin resistant Staphylococcus aureus; G92 Toxic encephalopathy; N18.6 End stage renal disease; I12.0 Hypertensive chronic kidney disease with stage 5 chronic kidney disease or end stage renal disease; M86.8X7 Other osteomyelitis, ankle and foot; I82.621 Acute embolism and thrombosis of deep veins of right upper extremity; E87.5 Hyperkalemia; D64.9 Anemia, unspecified; E11.22 Type 2 diabetes mellitus with diabetic chronic kidney disease; I48.0 Paroxysmal atrial fibrillation; E11.69 Type 2 diabetes mellitus with other specified complication; E78.00 Pure hypercholesterolemia, unspecified; E83.39 Other disorders of phosphorus metabolism; E11.621 Type 2 diabetes mellitus with foot ulcer; L97.509 Non-pressure chronic ulcer of other part of unspecified foot with unspecified severity; E11.51 Type 2 diabetes mellitus with diabetic peripheral angiopathy without gangrene; E83.111 Hemochromatosis due to repeated red blood cell transfusions; Z60.2 Problems related to living alone; J44.9 Chronic obstructive pulmonary disease, unspecified; K64.8 Other hemorrhoids; Z78.1 Physical restraint status; Z99.2 Dependence on renal dialysis; Z91.19 Patient's noncompliance with other medical treatment and regimen; Z91.15 Patient's noncompliance with renal dialysis; Z79.899 Other long term (current) drug therapy; Z79.01 Long term (current) use of anticoagulants; Z79.4 Long term (current) use of insulin; Z79.82 Long term (current) use of aspirin; Z95.9 Presence of cardiac and vascular implant and graft, unspecified; Z87.19 Personal history of other diseases of the digestive system
CPT/HCPCS: 36415; 36430; 70450; 71010; 80048; 80051; 80053; 80076; 80202; 82140; 82607; 82746; 82962; 83036; 83540; 83550; 83735; 84100; 84439; 84443; 84481; 84484; 85025; 86850; 86900; 86920; 87040; 87077; 93005; 93306; 93970; 93971; 94640; 94664; 96374; 96375; 99291; C1893; G0482; J0885; J1200; J1815; J2060; J2543; J3370; J3490; J7030; J7050; J7060; J7620; P9016; P9021

== ENCOUNTER 2016-12-24 16:19 | Emergency (ER) | payer MEDICARE, MEDICAID ==
[~2016-12-24] VITALS: Ht 177.8 cm; Wt 90.0 kg
[2016-12-24 17:39] LABS: BASOPHILS % 0.5 % (0.0-2.0); EOSINOPHILS % 3.1 % (0.0-5.0); HEMATOCRIT. 25.9 % (42.0-52.0); HEMOGLOBIN. 8.4 g/dL (14.0-18.0); LYMPHOCYTES % 11.2 % (20.0-50.0); MEAN CORPUSCULAR HEMOGLOBIN 29.6 pg (28.0-32.0); MEAN CORPUSCULAR VOLUME 90.8 fL (80.0-94.0); MEAN PLATELET VOLUME 7.7 fl (7.4-10.4); MONOCYTES % 9.6 % (2.0-8.0); NEUTROPHILS % 75.6 % (40.0-76.0); PLATELET 275 x1000/uL (130-400); RED BLOOD CELL COUNT 2.85 mill/uL (4.7-6.1); RED CELL DISTRIBUTION WIDTH 18.6 % (11.6-14.6)
[2016-12-24 17:40] LABS: CLARITY URINE CLOUDY (CLEAR); COLOR URINE YELLOW (YELLOW); GLUCOSE URINE 1+ (NEGATIVE); KETONES URINE NEGATIVE (NEGATIVE); LEUKOCYTE ESTERASE URINE 2+ (NEGATIVE); NITRITE URINE POSITIVE (NEGATIVE); OCCULT BLOOD URINE 1+ (NEGATIVE); PH URINE >=9.0 (4.5-8.0); PROTEIN URINE 3+ (NEGATIVE); SPECIFIC GRAVITY URINE 1.014 (1.005-1.030); UROBILINOGEN URINE 0.2 E.U./dL (0.2-1.0)
[2016-12-24 17:52] LABS: CARBON DIOXIDE 27 mEq/L (21-32); CHLORIDE 99 mEq/L (98-107)
[2016-12-24] MEDS ORDERED: DIPHENHYDRAMINE 50MG/ML VIAL IM PRN (19:30)
[2016-12-24] MEDS ORDERED: LEVOFLOXACIN 500MG TABLET PO ONE (19:30)
[2016-12-25 00:58] VITALS: BP 129/69
== END 2016-12-25 01:08 ==
LOC: ER 16:39
DX: N39.0 Urinary tract infection, site not specified (principal); I12.9 Hypertensive chronic kidney disease with stage 1 through stage 4 chronic kidney disease, or unspecified chronic kidney disease; E11.9 Type 2 diabetes mellitus without complications; E87.70 Fluid overload, unspecified; N18.9 Chronic kidney disease, unspecified; E87.5 Hyperkalemia; Z79.01 Long term (current) use of anticoagulants; Z99.2 Dependence on renal dialysis; Z79.82 Long term (current) use of aspirin; Z79.4 Long term (current) use of insulin
CPT/HCPCS: 36415; 71010; 80053; 81001; 85025; 87077; 87086; 87186; 96372; 99285; J1200; A4315

== ENCOUNTER 2017-01-11 19:17 | Inpatient (IN) | payer MEDICARE, MEDICAID ==
[~2017-01-11] VITALS: Ht 182.9 cm; Wt 94.8 kg
[~2017-01-11 19:17] MED LIST changes: -LOSA25TA12 PO
[2017-01-11] MEDS ORDERED: SODIUM CHLORIDE 0.9% 1000ML BAG (SEPSIS BOLUS) IV ONE (19:45)
[2017-01-11 20:28] LABS: BASOPHILS % 1.3 % (0.0-2.0); EOSINOPHILS % 9.3 % (0.0-5.0); HEMATOCRIT. 27.9 % (42.0-52.0); HEMOGLOBIN. 8.9 g/dL (14.0-18.0); LYMPHOCYTES % 17.6 % (20.0-50.0); MEAN CORPUSCULAR HEMOGLOBIN 28.5 pg (28.0-32.0); MEAN CORPUSCULAR VOLUME 89.8 fL (80.0-94.0); MEAN PLATELET VOLUME 8.1 fl (7.4-10.4); NEUTROPHILS % 58.8 % (40.0-76.0); PLATELET 286 x1000/uL (130-400); RED BLOOD CELL COUNT 3.11 mill/uL (4.7-6.1); RED CELL DISTRIBUTION WIDTH 19.2 % (11.6-14.6)
[2017-01-11 20:32] LABS: INR 1.1; PROTHROMBIN TIME 11.9 sec (9.4-11.6)
[2017-01-11 20:38] LABS: CARBON DIOXIDE 31 mEq/L (21-32); CHLORIDE 94 mEq/L (98-107)
[2017-01-11] MEDS ORDERED: OLANZAPINE 10 MG/VIAL IM ONE (21:00)
[2017-01-11] MEDS ORDERED: LORAZEPAM 2MG/ML CPJ IV ONE (21:45)
[2017-01-11 23:36] LABS: CLARITY URINE CLEAR (CLEAR); COLOR URINE YELLOW (YELLOW); GLUCOSE URINE 1+ (NEGATIVE); KETONES URINE NEGATIVE (NEGATIVE); LEUKOCYTE ESTERASE URINE TRACE (NEGATIVE); NITRITE URINE NEGATIVE (NEGATIVE); OCCULT BLOOD URINE NEGATIVE (NEGATIVE); PROTEIN URINE 3+ (NEGATIVE); SPECIFIC GRAVITY URINE 1.009 (1.005-1.030); UROBILINOGEN URINE 0.2 E.U./dL (0.2-1.0)
[2017-01-11] MEDS ORDERED: CEFTRIAXONE 1 G PREMIX 50 ML IV ONE (23:45)
[2017-01-12] MEDS ORDERED: MAGNESIUM/ALUMINUM HYDROXIDE/SIMETHICONE 30ML UDC PO PRN
[2017-01-12] MEDS ORDERED: IPRATROPIUM/ALBUTEROL 0.5-3(2.5)MG/3ML NEB INH PRN
[2017-01-12] MEDS ORDERED: ACETAMINOPHEN 325MG TABLET PO PRN
[2017-01-12] MEDS ORDERED: ONDANSETRON HCL 4MG/2ML VIAL IV PRN
[2017-01-12] MEDS ORDERED: DOCUSATE SODIUM 100MG CAPSULE PO PRN
[2017-01-12 03:16] LABS: AMMONIA 23 uMol/L (<32)
[2017-01-12 05:30] LABS: BASOPHILS % 1.2 % (0.0-2.0); EOSINOPHILS % 10.4 % (0.0-5.0); HEMOGLOBIN. 9.5 g/dL (14.0-18.0); LYMPHOCYTES % 19.8 % (20.0-50.0); MEAN CORPUSCULAR HEMOGLOBIN 28.3 pg (28.0-32.0); MEAN CORPUSCULAR VOLUME 89.8 fL (80.0-94.0); MEAN PLATELET VOLUME 7.5 fl (7.4-10.4); MONOCYTES % 13.2 % (2.0-8.0); NEUTROPHILS % 55.4 % (40.0-76.0); PLATELET 268 x1000/uL (130-400); RED BLOOD CELL COUNT 3.34 mill/uL (4.7-6.1); RED CELL DISTRIBUTION WIDTH 18.7 % (11.6-14.6)
[2017-01-12 05:45] LABS: PHOSPHORUS 5.4 mg/dL (2.5-4.9)
[2017-01-12] MEDS ORDERED: OMEPRAZOLE 20MG CAPSULE EXTENDED RELEASE PO SCH (07:50)
[2017-01-12 08:39] VITALS: BP 135/60
[2017-01-12 08:50] VITALS: BP 135/60
[2017-01-12] MEDS ORDERED: DEXTROSE 50% WATER 50ML SYRINGE IV PRN (09:00)
[2017-01-12] MEDS ORDERED: SEVE800T8 PO (11:11)
[2017-01-12] MEDS: BLOOD SUGAR DIAGNOSTIC STRIP TEST SCH ×3 (11:25→20:34)
[2017-01-12 11:27] LABS: *AMPHETAMINES SCREEN URINE NEGATIVE (NEGATIVE); *BARBITURATES SCREEN URINE NEGATIVE (NEGATIVE); *BENZODIAZEPINES SCREEN URINE NEGATIVE (NEGATIVE); *COCAINE SCREEN URINE NEGATIVE (NEGATIVE); CANNABINOID URINE SCREEN NEGATIVE (NEGATIVE); METHADONE URINE SCREEN NEGATIVE (NEGATIVE); OPIATES URINE SCREEN NEGATIVE (NEGATIVE); PHENCYCLIDINE URINE SCREEN NEGATIVE (NEGATIVE)
[2017-01-12] MEDS: AMLODIPINE 10MG TABLET PO SCH (11:30)
[2017-01-12 12:00] VITALS: BP 135/50
[2017-01-12] MEDS: INSULIN LISPRO 100 UNITS/ML SUBCUT SCH ×3 (12:08→20:45)
[2017-01-12] MEDS: LEVOFLOXACIN 250MG TABLET PO SCH (13:28)
[2017-01-12] MEDS ORDERED: SIMV20TA6 PO (16:38)
[2017-01-12] MEDS: DOCUSATE SODIUM 100MG CAPSULE PO SCH (17:19)
[2017-01-12] MEDS: DIPHENHYDRAMINE 25MG CAPSULE PO PRN (17:19)
[2017-01-12] MEDS: SEVELAMER CARBONATE 800 MG TABLET PO SCH (17:40)
[2017-01-12 20:00] VITALS: BP 136/55
[2017-01-12] MEDS: QUETIAPINE FUMARATE 25MG TABLET PO SCH (20:34)
[2017-01-12] MEDS: LOSARTAN POTASSIUM 25 MG TABLET PO SCH (20:34)
[2017-01-12] MEDS ORDERED: EPOETIN ALFA 10000UNITS/ML VIAL SUBCUT SCH (21:00)
[2017-01-13] VITALS (7 sets, daily range): BP systolic 124–145; BP diastolic 47–68
[2017-01-13 07:38] LABS: BASOPHILS % 1.1 % (0.0-2.0); EOSINOPHILS % 9.9 % (0.0-5.0); HEMATOCRIT. 33.6 % (42.0-52.0); HEMOGLOBIN. 10.5 g/dL (14.0-18.0); LYMPHOCYTES % 17.5 % (20.0-50.0); MEAN CORPUSCULAR HEMOGLOBIN 28.8 pg (28.0-32.0); MEAN CORPUSCULAR VOLUME 91.7 fL (80.0-94.0); MEAN PLATELET VOLUME 7.8 fl (7.4-10.4); NEUTROPHILS % 58.5 % (40.0-76.0); PLATELET 147 x1000/uL (130-400); RED BLOOD CELL COUNT 3.66 mill/uL (4.7-6.1); RED CELL DISTRIBUTION WIDTH 19.1 % (11.6-14.6)
[2017-01-13] MEDS: INSULIN LISPRO 100 UNITS/ML SUBCUT SCH ×4 (07:40→21:35)
[2017-01-13] MEDS: SEVELAMER CARBONATE 800 MG TABLET PO SCH ×3 (07:40→17:01)
[2017-01-13] MEDS: BLOOD SUGAR DIAGNOSTIC STRIP TEST SCH ×4 (07:42→21:00)
[2017-01-13] MEDS: ASPIRIN 81MG EC TABLET PO SCH (09:00)
[2017-01-13] MEDS: AMLODIPINE 10MG TABLET PO SCH (09:00)
[2017-01-13] MEDS ORDERED: FAMOTIDINE(NEO) 1MG/ML SUSP PO SCH (09:00)
[2017-01-13] MEDS ORDERED: HALOPERIDOL LACTATE 5MG/ML VIAL IM NR (13:40)
[2017-01-13] MEDS: HALOPERIDOL LACTATE 5MG/ML VIAL IM PRN ×2 (16:38→22:39)
[2017-01-13] MEDS: DOCUSATE SODIUM 100MG CAPSULE PO SCH (17:00)
[2017-01-13] MEDS: LOSARTAN POTASSIUM 25 MG TABLET PO SCH (21:32)
[2017-01-13] MEDS: QUETIAPINE FUMARATE 25MG TABLET PO SCH (21:32)
[2017-01-14 04:00] VITALS: BP 130/80
[2017-01-14] MEDS: HALOPERIDOL LACTATE 5MG/ML VIAL IM PRN ×3 (04:30→16:46)
[2017-01-14] MEDS: BLOOD SUGAR DIAGNOSTIC STRIP TEST SCH ×4 (06:03→21:31)
[2017-01-14] MEDS: INSULIN LISPRO 100 UNITS/ML SUBCUT SCH ×4 (06:12→21:00)
[2017-01-14] MEDS: OMEPRAZOLE 20MG CAPSULE EXTENDED RELEASE PO SCH (06:17)
[2017-01-14 07:14] LABS: BASOPHILS % 1.4 % (0.0-2.0); EOSINOPHILS % 12.1 % (0.0-5.0); HEMATOCRIT. 31.4 % (42.0-52.0); LYMPHOCYTES % 20.1 % (20.0-50.0); MEAN CORPUSCULAR HEMOGLOBIN 28.5 pg (28.0-32.0); MEAN CORPUSCULAR VOLUME 89.2 fL (80.0-94.0); MEAN PLATELET VOLUME 8.6 fl (7.4-10.4); MONOCYTES % 13.2 % (2.0-8.0); NEUTROPHILS % 53.2 % (40.0-76.0); PLATELET 276 x1000/uL (130-400); RED BLOOD CELL COUNT 3.52 mill/uL (4.7-6.1); RED CELL DISTRIBUTION WIDTH 18.8 % (11.6-14.6)
[2017-01-14 07:37] VITALS: BP 166/59
[2017-01-14] MEDS: ASPIRIN 81MG EC TABLET PO SCH (08:43)
[2017-01-14] MEDS: SEVELAMER CARBONATE 800 MG TABLET PO SCH ×3 (08:43→16:46)
[2017-01-14] MEDS: DIPHENHYDRAMINE 25MG CAPSULE PO PRN (08:43)
[2017-01-14] MEDS: AMLODIPINE 10MG TABLET PO SCH (08:44)
[2017-01-14 11:33] VITALS: BP 115/61
[2017-01-14] MEDS: LEVOFLOXACIN 250MG TABLET PO SCH (11:58)
[2017-01-14 16:00] VITALS: BP 157/70
[2017-01-14] MEDS: DOCUSATE SODIUM 100MG CAPSULE PO SCH (16:46)
[2017-01-14 20:00] VITALS: BP 128/68
[2017-01-14] MEDS: LOSARTAN POTASSIUM 25 MG TABLET PO SCH (21:34)
[2017-01-14] MEDS: QUETIAPINE FUMARATE 25MG TABLET PO SCH (21:35)
[2017-01-15] VITALS: BP 146/51
[2017-01-15 04:00] VITALS: BP 154/66
[2017-01-15] MEDS: OMEPRAZOLE 20MG CAPSULE EXTENDED RELEASE PO SCH (06:20)
[2017-01-15] MEDS: BLOOD SUGAR DIAGNOSTIC STRIP TEST SCH ×3 (06:53→17:10)
[2017-01-15] MEDS: INSULIN LISPRO 100 UNITS/ML SUBCUT SCH ×3 (06:53→17:31)
[2017-01-15] MEDS ORDERED: LOSA25TA12 PO (07:22)
[2017-01-15 08:00] VITALS: BP 146/64
[2017-01-15] MEDS: AMLODIPINE 10MG TABLET PO SCH (08:07)
[2017-01-15] MEDS: ASPIRIN 81MG EC TABLET PO SCH (08:07)
[2017-01-15] MEDS: SEVELAMER CARBONATE 800 MG TABLET PO SCH ×3 (08:07→17:31)
[2017-01-15] MEDS ORDERED: LOSARTAN POTASSIUM 25 MG TABLET PO SCH (09:00)
[2017-01-15] MEDS ORDERED: METOPROLOL TARTRATE 25MG TABLET PO SCH (10:00)
[2017-01-15 11:26] VITALS: BP 144/66
[2017-01-15 15:17] VITALS: BP 131/64
[2017-01-15] MEDS: DOCUSATE SODIUM 100MG CAPSULE PO SCH (17:00)
[2017-01-15 17:13] VITALS: BP 131/64
[2017-01-16] MEDS ORDERED: FAMOTIDINE 20MG TABLET PO SCH (07:10)
== END 2017-01-15 18:51 | DRG 91 ==
LOC: ER 19:17 → 8WST 23:51 → CANRESERV 01-12 01:38 → ENRESERV 01-12 01:38 → ER 01-12 08:15 → 8WST 01-12 08:36
PROVIDERS: ADMIT Family Medicine Adult Medicine; ATTEND Family Medicine Adult Medicine
PROC: 5A1D60Z (ICD-10-PCS; principal; 2017-01-12)
DX: G92 Toxic encephalopathy (principal); J18.9 Pneumonia, unspecified organism; J96.00 Acute respiratory failure, unspecified whether with hypoxia or hypercapnia; E44.0 Moderate protein-calorie malnutrition; I12.0 Hypertensive chronic kidney disease with stage 5 chronic kidney disease or end stage renal disease; N18.6 End stage renal disease; I48.0 Paroxysmal atrial fibrillation; R45.851 Suicidal ideations; F03.90 Unspecified dementia, unspecified severity, without behavioral disturbance, psychotic disturbance, mood disturbance, and anxiety; N39.0 Urinary tract infection, site not specified; J98.11 Atelectasis; E11.22 Type 2 diabetes mellitus with diabetic chronic kidney disease; E27.8 Other specified disorders of adrenal gland; D63.1 Anemia in chronic kidney disease; I44.0 Atrioventricular block, first degree; K21.9 Gastro-esophageal reflux disease without esophagitis; Z99.2 Dependence on renal dialysis; Z79.4 Long term (current) use of insulin; Z79.899 Other long term (current) drug therapy; Z68.28 Body mass index [BMI] 28.0-28.9, adult; Z87.01 Personal history of pneumonia (recurrent); Z86.718 Personal history of other venous thrombosis and embolism
CPT/HCPCS: 36415; 71010; 80048; 80053; 80076; 80305; 81001; 82140; 82962; 83605; 83735; 84100; 85025; 85610; 87040; 87086; 93005; 96361; 96365; 96372; 96375; 97162; 97166; 99285; G0482; J0696; J0885; J1630; J1815; J2060; J3490; J7030; Q0163

== ENCOUNTER 2017-02-02 00:32 | Inpatient (IN) | payer MEDICARE, MEDICAID ==
[~2017-02-02] VITALS: Ht 172.7 cm; Wt 93.0 kg
[~2017-02-02 00:32] MED LIST changes: -APIX2.5T PO; +LOSA25TA12 PO; +SEVE800T8 PO
[2017-02-02] MEDS ORDERED: LORAZEPAM 1MG TABLET PO ONE (01:45)
[2017-02-02 01:50] LABS: BASOPHILS % 1.1 % (0.0-2.0); HEMATOCRIT. 30.2 % (42.0-52.0); HEMOGLOBIN. 9.6 g/dL (14.0-18.0); LYMPHOCYTES % 12.5 % (20.0-50.0); MEAN CORPUSCULAR HEMOGLOBIN 27.5 pg (28.0-32.0); MEAN CORPUSCULAR VOLUME 86.6 fL (80.0-94.0); MONOCYTES % 7.5 % (2.0-8.0); NEUTROPHILS % 74.9 % (40.0-76.0); PLATELET 249 x1000/uL (130-400); RED BLOOD CELL COUNT 3.48 mill/uL (4.7-6.1); RED CELL DISTRIBUTION WIDTH 19.5 % (11.6-14.6)
[2017-02-02 01:58] LABS: PROTHROMBIN TIME 10.7 sec (9.4-11.6)
[2017-02-02] MEDS ORDERED: LORAZEPAM 2MG/ML CPJ IV ONE (02:15)
[2017-02-02 02:29] LABS: CARBON DIOXIDE 24 mEq/L (21-32); CHLORIDE 103 mEq/L (98-107)
[2017-02-02 02:30] LABS: ETHANOL BLOOD < 10 mg/dL; TROPONIN I < 0.02 ng/mL (0.00-0.04)
[2017-02-02 02:45] LABS: AMMONIA 20 uMol/L (<32)
[2017-02-02] MEDS ORDERED: CALCIUM CHLORIDE 1GM/10ML SYR IV ONE (02:45)
[2017-02-02] MEDS ORDERED: SODIUM BICARBONATE 8.4% 1 MEQ/ML 50ML SYR IV ONE (02:45)
[2017-02-02] MEDS ORDERED: SODIUM POLYSTYRENE SULFONATE 15 G/60 ML BOT PO ONE (02:45)
[2017-02-02] MEDS ORDERED: DEXTROSE 50% WATER 50ML SYRINGE IV ONE (02:45)
[2017-02-02] MEDS ORDERED: INSULIN REGULAR (HUMULIN R) 300UNITS/3ML IV ONE (02:45)
[2017-02-02] MEDS ORDERED: MIDAZOLAM HCL 2 MG/2 ML VIAL IV ONE (04:45)
[2017-02-02 08:00] VITALS: BP 155/75
[2017-02-02 08:55] VITALS: BP 155/75
[2017-02-02] MEDS ORDERED: DEXTROSE 50% WATER 50ML SYRINGE IV PRN (10:00)
[2017-02-02] MEDS ORDERED: IPRATROPIUM/ALBUTEROL 0.5-3(2.5)MG/3ML NEB INH PRN (11:30)
[2017-02-02] MEDS ORDERED: ONDANSETRON HCL 4MG/2ML VIAL IV PRN (11:30)
[2017-02-02] MEDS ORDERED: DOCUSATE SODIUM 100MG CAPSULE PO PRN (11:30)
[2017-02-02 12:00] VITALS: BP 125/86
[2017-02-02] MEDS: BLOOD SUGAR DIAGNOSTIC STRIP TEST SCH ×3 (12:17→20:33)
[2017-02-02] MEDS ORDERED: ACET-2178 PO (12:29)
[2017-02-02] MEDS: INSULIN LISPRO 100 UNITS/ML SUBCUT SCH ×3 (13:39→20:33)
[2017-02-02 16:00] VITALS: BP 146/60
[2017-02-02] MEDS: HALOPERIDOL 0.5MG TABLET PO PRN ×2 (19:40→20:01)
[2017-02-02] MEDS: ACETAMINOPHEN 325MG TABLET PO PRN ×2 (19:40→20:01)
[2017-02-02] MEDS ORDERED: HALOPERIDOL LACTATE 5MG/ML VIAL IM PRN (23:27)
[2017-02-02] MEDS ORDERED: METO25TA6 PO (23:34)
[2017-02-02] MEDS ORDERED: QUET50TA PO (23:34)
[2017-02-03] VITALS: BP 160/71
[2017-02-03] MEDS ORDERED: LORAZEPAM 2MG/ML CPJ IV PRN (01:00)
[2017-02-03 04:00] VITALS: BP 161/71
[2017-02-03] MEDS ORDERED: HALOPERIDOL LACTATE 5MG/ML VIAL IM PRN (05:27)
[2017-02-03] MEDS: BLOOD SUGAR DIAGNOSTIC STRIP TEST SCH ×4 (06:31→20:47)
[2017-02-03 06:34] LABS: BASOPHILS % 0.7 % (0.0-2.0); EOSINOPHILS % 3.3 % (0.0-5.0); HEMATOCRIT. 25.7 % (42.0-52.0); HEMOGLOBIN. 8.2 g/dL (14.0-18.0); LYMPHOCYTES % 10.6 % (20.0-50.0); MEAN CORPUSCULAR HEMOGLOBIN 27.6 pg (28.0-32.0); MEAN CORPUSCULAR VOLUME 86.6 fL (80.0-94.0); MEAN PLATELET VOLUME 8.4 fl (7.4-10.4); MONOCYTES % 7.7 % (2.0-8.0); NEUTROPHILS % 77.7 % (40.0-76.0); PLATELET 223 x1000/uL (130-400); RED BLOOD CELL COUNT 2.97 mill/uL (4.7-6.1); RED CELL DISTRIBUTION WIDTH 19.5 % (11.6-14.6)
[2017-02-03] MEDS: INSULIN LISPRO 100 UNITS/ML SUBCUT SCH ×4 (07:50→20:47)
[2017-02-03 08:00] VITALS: BP 172/74
[2017-02-03] MEDS: ASPIRIN 81MG EC TABLET PO SCH (09:00)
[2017-02-03] MEDS: LOSARTAN POTASSIUM 25 MG TABLET PO SCH ×2 (09:00→20:46)
[2017-02-03] MEDS: AMLODIPINE 10MG TABLET PO SCH (09:00)
[2017-02-03] MEDS: METOPROLOL TARTRATE 25MG TABLET PO SCH ×2 (09:00→20:46)
[2017-02-03] MEDS: FAMOTIDINE 20MG TABLET PO SCH (09:36)
[2017-02-03] MEDS: QUETIAPINE FUMARATE 50MG TABLET PO SCH ×2 (09:37→17:00)
[2017-02-03] MEDS: SEVELAMER CARBONATE 800 MG TABLET PO SCH ×3 (09:40→17:43)
[2017-02-03 12:00] VITALS: BP 197/62
[2017-02-03 16:00] VITALS: BP 156/57
[2017-02-03] MEDS: DOCUSATE SODIUM 100MG CAPSULE PO SCH (17:43)
[2017-02-03 20:43] VITALS: BP 157/63
[2017-02-03] MEDS: HALOPERIDOL 0.5MG TABLET PO PRN (23:53)
[2017-02-03] MEDS: ACETAMINOPHEN 325MG TABLET PO PRN (23:53)
[2017-02-04 00:28] VITALS: BP 143/72
[2017-02-04 04:00] VITALS: BP 157/71
[2017-02-04] MEDS ORDERED: LORAZEPAM 2MG/ML CPJ IV NR (04:00)
[2017-02-04] MEDS: BLOOD SUGAR DIAGNOSTIC STRIP TEST SCH ×4 (06:25→21:40)
[2017-02-04 07:22] VITALS: BP 149/71
[2017-02-04] MEDS: FAMOTIDINE 20MG TABLET PO SCH (08:31)
[2017-02-04] MEDS: QUETIAPINE FUMARATE 50MG TABLET PO SCH ×2 (08:31→17:57)
[2017-02-04] MEDS: AMLODIPINE 10MG TABLET PO SCH (08:31)
[2017-02-04] MEDS: SEVELAMER CARBONATE 800 MG TABLET PO SCH ×3 (08:31→17:57)
[2017-02-04] MEDS: ASPIRIN 81MG EC TABLET PO SCH (08:31)
[2017-02-04] MEDS: LOSARTAN POTASSIUM 25 MG TABLET PO SCH ×2 (08:32→21:34)
[2017-02-04] MEDS: METOPROLOL TARTRATE 25MG TABLET PO SCH ×2 (08:32→21:51)
[2017-02-04] MEDS: INSULIN LISPRO 100 UNITS/ML SUBCUT SCH ×4 (08:37→21:00)
[2017-02-04 11:53] VITALS: BP 123/53
[2017-02-04] MEDS: TAMSULOSIN HCL 0.4MG SR CAPSULE PO SCH (13:32)
[2017-02-04] MEDS: FINASTERIDE 5MG TABLET PO SCH (13:32)
[2017-02-04 15:02] VITALS: BP 143/64
[2017-02-04] MEDS: DOCUSATE SODIUM 100MG CAPSULE PO SCH (17:57)
[2017-02-04 19:41] VITALS: BP 131/51
[2017-02-04] MEDS: ZOLPIDEM TARTRATE 5MG TABLET PO PRN (21:33)
[2017-02-05 00:04] VITALS: BP 135/50
[2017-02-05] MEDS: HALOPERIDOL 0.5MG TABLET PO PRN (00:50)
[2017-02-05 04:27] VITALS: BP 164/63
[2017-02-05 06:10] LABS: BASOPHILS % 0.7 % (0.0-2.0); EOSINOPHILS % 4.8 % (0.0-5.0); HEMATOCRIT. 28.2 % (42.0-52.0); HEMOGLOBIN. 9.1 g/dL (14.0-18.0); LYMPHOCYTES % 17.4 % (20.0-50.0); MEAN CORPUSCULAR HEMOGLOBIN 27.6 pg (28.0-32.0); MEAN CORPUSCULAR VOLUME 85.6 fL (80.0-94.0); MEAN PLATELET VOLUME 8.3 fl (7.4-10.4); NEUTROPHILS % 67.1 % (40.0-76.0); PLATELET 250 x1000/uL (130-400); RED BLOOD CELL COUNT 3.29 mill/uL (4.7-6.1)
[2017-02-05] MEDS: BLOOD SUGAR DIAGNOSTIC STRIP TEST SCH ×4 (07:09→21:00)
[2017-02-05 08:00] VITALS: BP 146/57
[2017-02-05] MEDS: AMLODIPINE 10MG TABLET PO SCH (08:28)
[2017-02-05] MEDS: LOSARTAN POTASSIUM 25 MG TABLET PO SCH ×2 (08:28→22:06)
[2017-02-05] MEDS: METOPROLOL TARTRATE 25MG TABLET PO SCH ×2 (08:28→22:06)
[2017-02-05] MEDS: INSULIN LISPRO 100 UNITS/ML SUBCUT SCH ×4 (08:49→21:00)
[2017-02-05] MEDS: TAMSULOSIN HCL 0.4MG SR CAPSULE PO SCH (08:50)
[2017-02-05] MEDS: ASPIRIN 81MG EC TABLET PO SCH (08:50)
[2017-02-05] MEDS: QUETIAPINE FUMARATE 50MG TABLET PO SCH ×2 (08:50→19:57)
[2017-02-05] MEDS: FINASTERIDE 5MG TABLET PO SCH (08:50)
[2017-02-05] MEDS: SEVELAMER CARBONATE 800 MG TABLET PO SCH ×3 (08:50→18:30)
[2017-02-05] MEDS: FAMOTIDINE 20MG TABLET PO SCH (08:50)
[2017-02-05 12:10] VITALS: BP 134/67
[2017-02-05 16:24] VITALS: BP 141/73
[2017-02-05] MEDS: DOCUSATE SODIUM 100MG CAPSULE PO SCH (18:30)
[2017-02-05 20:58] VITALS: BP 154/56
[2017-02-05] MEDS: ZOLPIDEM TARTRATE 5MG TABLET PO PRN (22:06)
[2017-02-06] VITALS (7 sets, daily range): BP systolic 118–161; BP diastolic 58–72
[2017-02-06 06:39] LABS: BASOPHILS % 0.9 % (0.0-2.0); EOSINOPHILS % 4.8 % (0.0-5.0); HEMATOCRIT. 30.4 % (42.0-52.0); HEMOGLOBIN. 9.6 g/dL (14.0-18.0); LYMPHOCYTES % 18.1 % (20.0-50.0); MEAN CORPUSCULAR HEMOGLOBIN 27.4 pg (28.0-32.0); MEAN CORPUSCULAR VOLUME 86.8 fL (80.0-94.0); MEAN PLATELET VOLUME 7.9 fl (7.4-10.4); MONOCYTES % 9.1 % (2.0-8.0); NEUTROPHILS % 67.1 % (40.0-76.0); PLATELET 225 x1000/uL (130-400); RED CELL DISTRIBUTION WIDTH 19.7 % (11.6-14.6)
[2017-02-06] MEDS: BLOOD SUGAR DIAGNOSTIC STRIP TEST SCH ×3 (06:43→17:20)
[2017-02-06] MEDS: INSULIN LISPRO 100 UNITS/ML SUBCUT SCH ×3 (07:50→17:29)
[2017-02-06] MEDS: TAMSULOSIN HCL 0.4MG SR CAPSULE PO SCH (09:04)
[2017-02-06] MEDS: AMLODIPINE 10MG TABLET PO SCH (09:05)
[2017-02-06] MEDS: LOSARTAN POTASSIUM 25 MG TABLET PO SCH (09:05)
[2017-02-06] MEDS: FINASTERIDE 5MG TABLET PO SCH (09:05)
[2017-02-06] MEDS: FAMOTIDINE 20MG TABLET PO SCH (09:05)
[2017-02-06] MEDS: SEVELAMER CARBONATE 800 MG TABLET PO SCH ×3 (09:05→17:29)
[2017-02-06] MEDS: QUETIAPINE FUMARATE 50MG TABLET PO SCH ×2 (09:05→17:00)
[2017-02-06] MEDS: METOPROLOL TARTRATE 25MG TABLET PO SCH (09:05)
[2017-02-06] MEDS: DOCUSATE SODIUM 100MG CAPSULE PO SCH (17:00)
== END 2017-02-06 21:45 | DRG 640 ==
LOC: ER 01:00 → 6WST 03:29 → ENRESERV 07:21 → 6WST 09:05
PROVIDERS: ADMIT Family Medicine Adult Medicine; ATTEND Family Medicine Adult Medicine
DX: E87.5 Hyperkalemia (principal); N18.6 End stage renal disease; R57.9 Shock, unspecified; I12.0 Hypertensive chronic kidney disease with stage 5 chronic kidney disease or end stage renal disease; E11.22 Type 2 diabetes mellitus with diabetic chronic kidney disease; I48.91 Unspecified atrial fibrillation; E44.1 Mild protein-calorie malnutrition; N13.30 Unspecified hydronephrosis; F03.90 Unspecified dementia, unspecified severity, without behavioral disturbance, psychotic disturbance, mood disturbance, and anxiety; E27.8 Other specified disorders of adrenal gland; D63.8 Anemia in other chronic diseases classified elsewhere; E78.00 Pure hypercholesterolemia, unspecified; K21.9 Gastro-esophageal reflux disease without esophagitis; R33.9 Retention of urine, unspecified; R31.0 Gross hematuria; Z86.718 Personal history of other venous thrombosis and embolism; Z91.15 Patient's noncompliance with renal dialysis; Z87.440 Personal history of urinary (tract) infections; Z79.899 Other long term (current) drug therapy; Z79.82 Long term (current) use of aspirin; Z68.31 Body mass index [BMI] 31.0-31.9, adult
CPT/HCPCS: 36415; 70450; 71010; 80048; 80053; 80307; 80329; 82140; 82962; 83605; 83690; 83735; 84443; 84484; 85025; 85610; 93005; 96374; 97163; 99291; C1893; G0482; J1630; J1815; J2060; J2250; J3490; J7030; A4315